=== PATIENT | male | born 1960 | race Two or more races ===

== ENCOUNTER 2023-06-27 15:38 | Emergency (ER) | payer MEDICAID ==
[~2023-06-27] VITALS: Ht 170.2 cm; Wt 97.1 kg
[2023-06-27 18:24] LABS: Basophils # (auto) 0 10 ^3/uL (0-0.2); Basophils % (auto) 0.5 % (0.0-2.0); Eosinophils # (auto) 0.3 10 ^3/uL (0-0.8); Eosinophils % (auto) 3.3 % (0.0-7.0); Hematocrit 44.4 % (41.0-53.0); Hemoglobin 14.6 g/dL (13.5-17.5); Lymphocytes # (auto) 2.7 10 ^3/uL (0.4-5.4); Mean Corpuscular Hemoglobin 29.2 pg (28.0-32.0); Mean Corpuscular Hgb Conc. 32.9 g/dL (32.0-36.0); Mean Corpuscular Volume 88.9 fL (80.0-100.0); Monocytes # (auto) 0.7 10 ^3/uL (0-1.3); Monocytes % (auto) 7.9 % (0.0-12.0); Neutrophils # (auto) 5.7 10 ^3/uL (1.6-8.6); Neutrophils % (auto) 60.3 % (37.0-80.0); Nucleated Red Blood Cells % 0.1 %; Red Cell Distribution Width 14.3 % (11.8-14.3); White Blood Cell 9.5 10^3/uL (4.4-10.8)
[2023-06-27 18:30] LABS: Urine Bacteria NONE SEEN /hpf (None Seen); Urine Blood Negative /uL (Negative); Urine Clarity Clear (Clear); Urine Color Yellow (Yellow); Urine Protein, UAD Negative (Negative); Urine Specific Gravity 1.037 (1.001-1.035); Urine Urobilinogen Normal (Negative); Urine WBC 1 /hpf (0 - 3); Urine pH 5.5 (5.0-8.0)
[2023-06-27 18:31] LABS: Anion Gap 3 (5-15); Carbon Dioxide 28 mmol/L (20-30); Chloride 107 mmol/L (98-107); Potassium 4.2 mmol/L (3.5-5.1); Sodium 138 mmol/L (136-145)
[2023-06-27 18:32] LABS: Calcium 9.4 mg/dL (8.5-10.1)
[2023-06-27 18:37] LABS: BUN/Creatinine Ratio 14.3 (10.0-20.0); Blood Urea Nitrogen 10 mg/dL (9-23); Glucose 111 mg/dL (74-106)
[2023-06-27 20:08] LABS: Lactic Acid w/Reflex 2.3 mmol/L (0.4-2.0)
[2023-06-27 20:27] LABS: Erythrocyte Sedimentation Rate 23 mm/hr (0-20)
[2023-06-27] MEDS: SODIUM CHLORIDE 0.9% 1,000 ML IV ONE (21:09)
[2023-06-27] MEDS ORDERED: CEPH500C PO (21:30)
[2023-06-27 22:08] VITALS: BP 116/63; TEMP 97.7
[2023-06-27 23:01] VITALS: PULSE 86; RESP 14; O2SAT 97
== END 2023-06-27 23:02 | disposition home or self-care (01) ==
LOC: ER 15:38
DX: I87.333 Chronic venous hypertension (idiopathic) with ulcer and inflammation of bilateral lower extremity (principal); Z79.899 Other long term (current) drug therapy
CPT/HCPCS: 36415; 80048; 81001; 82962; 83605; 84484; 85025; 85652; 86141; 87040; 96360; 99283; J7030

== ENCOUNTER 2024-10-12 10:26 | Inpatient (IN) | payer MEDICARE, MEDICAID ==
[~2024-10-12] VITALS: Ht 170.2 cm; Wt 104.3 kg
[~2024-10-12 10:26] MED LIST: CEPH500C PO
[2024-10-12] MEDS: SODIUM CHLORIDE 0.9% 1,000 ML IV ONE ×2 (10:30→10:47)
--- NOTE | 2024-10-12 10:32 | ED.PDOC ---
History of Present Illness HPI Comments 64 year old male presents to the ED via EMS with a chief complaint of wound check onset today (10/12/24). Per EMS, patient's neighbor noticed patient's wounds are worsening, called 911. Patient states he has been having wounds on bilateral lower extremities "for a while", current caregiver, brother, is in [facility] and has not been able to take care of patient. Patient is unsure if he is currently of antibiotics. PMHx [place], CAD, DM, CVA, dementia. Denies chest pain, nausea, vomiting, abdominal pain, fevers, chills. No other symptoms or modifying factors present at this time. Time Seen by MD: 10:25 Primary Care Provider: SRAVANTHI Juan Notes: Medications, Allergies Allergies: Coded Allergies: NO KNOWN ALLERGIES (Unverified , 06/27/23) Home Meds Active Scripts Cephalexin Monohydrate (Cephalexin) 500 Mg Cap, 500 MG PO Q6HR for 7 Days, #28 CAP Prov:TARAS CURRAN Margarette CURRY 06/27/23 Information Source: Patient, Emergency Med Personnel Mode of Arrival: EMS Severity: Moderate Timing: Hours Duration: Since onset Prehospital treatment: None Past Medical History PAST MEDICAL HISTORY: CAD, CVA, Dementia, DM, [place] Surgical History: Denies all surgeries Family History Family History: Reviewed,noncontributory to illness, No family hx of Cancer, No family hx of DM, No family hx of Heart harinder, No family hx of HTN, No family hx ofKidney harinder, No family hx of Liver harinder, No family hx of Lung harinder, No family hx of Stroke Social History Smoker: Non-Smoker Alcohol: Denies ETOH Use Drugs: Denies Drug Use Lives In: Home Constitutional: denies: chills, diaphoresis, fatigue, fever, malaise, sweats, weakness, others EENTM: denies: blurred vision, double vision, ear bleeding, ear discharge, ear drainage, ear pain, ear ringing, eye pain, eye redness, hearing loss, mouth pain, mouth swelling, nasal discharge, nose bleeding, nose congestion, nose pain, photophobia, tearing, throat pain, throat swelling, voice changes, others Respiratory: denies: cough, hemoptysis, orthopnea, SOB at rest, shortness of breath, SOB with excertion, stridor, wheezing, others Cardiovascular: denies: chest pain, dizzy spells, diaphoresis, Dyspnea on exertion, edema, irregular heart beat, left arm pain, lightheadedness, palpitations, PND, syncope, others Gastrointestinal: denies: abdomen distended, abdominal pain, blood streaked bowels, constipated, diarrhea, dysphagia, difficulty swallowing, hematemesis, melena, nausea, poor appetite, poor fluid intake, rectal bleeding, rectal pain, vomiting, others Genitourinary: denies: burning, dysuria, flank pain, frequency, hematuria, incontinence, penile discharge, penile sore, pain, testicle pain, testicle swelling, urgency, others Neurological: denies: dizziness, fainting, headache, left sided numbness, left sided weakness, numbness, paresthesia, pre-existing deficit, right sided numbness, right sided weakness, seizure, speech problems, tingling, tremors, weakness, others Musculoskeletal: denies: back pain, gout, joint pain, joint swelling, muscle pain, muscle stiffness, neck pain, others Integumetry: reports: wounds (bilateral lower extremites); denies: bruises, change in color, change in hair/nails, dryness, laceration, lesions, lumps, rash, others Allergic/Immunocompromised: denies: Difficulty Healing, Frequent Infections, Hives, Itching, others Hematologic/Lymphatic: denies: anemia, blood clots, easy bleeding, easy bruising, swollen glands, others Endocrine: denies: excessive hunger, excessive sweating, excessive thirst, excessive urination, flushing, intolerance to cold, intolerance to heat, unexplained weight gain, unexplained weight loss, others Psychiatric: denies: anxiety, bipolar disorder, depression, hopeless, panic disorder, schizophrenia, sleepless, suicidal, others All Other Systems: Reviewed and Negative Physical Exam General Appearance: Moderate Distress, Normal HEENT: Normal ENT Inspection, Pharynx Normal, TMs Normal Neck: Full Range of Motion, Non-Tender, Normal, Normal Inspection Respiratory: Chest Non-Tender, Lungs Clear, No Accessory Muscle Use, No Respiratory Distress, Normal Breath Sounds Cardiovascular: No Edema, No JVD, No Murmur, No Gallop, Normal Peripheral Pulses, Regular Rate/Rhythm Breast Exam: Deferred Gastrointestinal: No Organomegaly, Non Tender, No Pulsatile Mass, Normal Bowel Sounds, Soft Genitalia: Deferred Pelvic: Deferred Rectal: Deferred Extremities: No calf tenderness, Normal capillary refill, Normal inspection, Normal range of motion, Non-tender, No pedal edema Musculoskeletal : Apperance: Normal Neurologic: Alert, health program analyst II-XII nml as Tested, No Motor Deficits, Normal Affect, Normal Mood, No Sensory Deficits Cerebellar Function: NOT DONE Reflexes: NOT DONE Skin: Dry, Normal Color, Warm, Wounds (Bilateral lower extremity) Lymphatic: No Adenopathy Was a procedure done? Was a procedure done?: No Differential Dx Considerations may include: Cellulitis Sepsis X-Ray, Labs, Meds, VS Vital Signs Date Time Temp Pulse Resp B/P (MAP) Pulse Ox O2 Delivery O2 Flow Rate FiO2 10/12/24 10:34 97.7 66 20 115/67 (83) 94 97.7 10/12/24 10:33 62 Lab Test 10/12/24 10:46 Range/Units White Blood Count 4.5 4.4-10.8 10^3/uL Red Blood Count 4.02 L 4.5-5.90 10^6/uL Hemoglobin 11.5 L 13.5-17.5 g/dL Hematocrit 34.7 L 41.0-53.0 % Mean Corpuscular Volume 86.3 80.0-100.0 fL Mean Corpuscular Hemoglobin 28.5 28.0-32.0 pg Mean Corpuscular Hemoglobin Concent 33.1 32.0-36.0 g/dL Red Cell Distribution Width 16.6 H 11.8-14.3 % Platelet Count 212 140-450 10^3/uL Mean Platelet Volume 8.9 6.9-10.8 fL Neutrophils (%) (Auto) 61.9 37.0-80.0 % Lymphocytes (%) (Auto) 24.0 10.0-50.0 % Monocytes (%) (Auto) 10.6 0.0-12.0 % Eosinophils (%) (Auto) 2.9 0.0-7.0 % Basophils (%) (Auto) 0.6 0.0-2.0 % Neutrophils # (Auto) 2.8 1.6-8.6 10 ^3/uL Lymphocytes # (Auto) 1.1 0.4-5.4 10 ^3/uL Monocytes # (Auto) 0.5 0-1.3 10 ^3/uL Eosinophils # (Auto) 0.1 0-0.8 10 ^3/uL Basophils # (Auto) 0 0-0.2 10 ^3/uL Nucleated Red Blood Cells 0.0 % Sodium Level 144 136-145 mmol/L Potassium Level 3.4 L 3.5-5.1 mmol/L Chloride Level 114 H 98-107 mmol/L Carbon Dioxide Level 21 20-31 mmol/L Anion Gap 9 5-15 Blood Urea Nitrogen 10 9-23 mg/dL Creatinine 0.64 L 0.700-1.30 mg/dL Glomerular Filtration Rate Calc 105 >90 mL/min BUN/Creatinine Ratio 15.6 10.0-20.0 Serum Glucose 105 74-106 mg/dL Lactic Acid Level 1.3 0.4-2.0 mmol/L Calcium Level 7.8 L 8.7-10.4 mg/dL Troponin I High Sensitivity 4 </=54 ng/L Current Medications Medications (Trade) Dose Ordered Sig/Zabrina Route Start Time Stop Time Status Last Admin Clindamycin Phosphate 50 ml @ 50 mls/hr ONCE ONCE IV 10/12/24 10:30 10/12/24 11:29 10/12/24 10:51 Sodium Chloride 1,000 ml @ 1,000 mls/hr Q1H ONCE IV 10/12/24 10:30 10/12/24 11:29 10/12/24 10:47 Patient alert. Came in because of wound in his legs. On examination he does have infection possible cellulitis possible sepsis. Vitals stable. Establish intravenous access. Was given fluids. Was given Zosyn. Was given clindamycin. WBC within normal limits. Explained to the patient that he will be admitted for antibiotics pain EKG reviewed does not show any acute changes other than bundle branch block. Spoke with the cardiology. Possibly will need echocardiogram. Continue monitoring. [address] [address] Ph: [phone] DIAGNOSTIC IMAGING Diagnostic Imaging Report : [id number] Signed PATIENT: BIN HEART JRACCT: [id number] UNIT: [id number] : 1960 LOC: ER ROOM / BED: / AGE / SEX: 64 / M ADM STATUS: REG ER SERVICE 1029 ORDERING PHYSICIAN: KENAN GARCIA MD PROCEDURE(s): CXRP - CHEST PORTABLE REASON: sob ORDER NUMBER(s): [id number], ACCESSION NUMBER(s): [id number] CHEST RADIOGRAPH Indication: sob Technique: Single frontal view of the chest was obtained COMPARISON: None FINDINGS: Lines and Tubes: Left chest wall AICD. Lungs: Increased interstitial prominence Pleura: No effusion. No pneumothorax. Cardiomediastinal contours: Unremarkable Bones: Unremarkable IMPRESSION: Mild pulmonary vascular congestion ATED BY: DAIVD FERGUSON MD DICTATED DATE/TIME: 10/12/241057 SIGNED BY: DAVID FERGUSON MD SIGNED DATE/TIME: 10/12/241057 CC: Time of 1ST Reevaluation: 10:55 Reevaluation 1ST: Unchanged Patient Education/Counseling: Diagnosis, Treatment, Prognosis Family Education/Counseling: No Family Present SEPSIS Sepsis Screen Physician Orders Blood Culture (10/12/24 10:29) Piperacillin-Tazob 3.375gm (Zosyn 3.375g (10/12/24 10:30) Clindamycin 600mg Iv (Cleocin Iv) (10/12/24 10:30) Chest Portable (10/12/24 10:29) Urinalysis (10/12/24 10:29) Sodium Chloride 0.9% (10/12/24 10:30) Sodium Chloride 0.9% (10/12/24 10:30) Troponin-I Hs (10/12/24 11:29) Troponin-I Hs (10/12/24 13:29) Electrocardigram (10/12/24 13:37) Vital Signs Date Time Temp Pulse Resp B/P (MAP) Pulse Ox O2 Delivery O2 Flow Rate FiO2 10/12/24 10:34 97.7 66 20 115/67 (83) 94 97.7 10/12/24 10:33 62 Laboratory Tests Test 10/12/24 10:46 Lactic Acid Level 1.3 mmol/L (0.4-2.0) White Blood Count 4.5 10^3/uL (4.4-10.8) Medications Medications Dose Ordered Sig/Zabrina Route Start Time Stop Time Status Last Admin Dose Admin Clindamycin Phosphate 50 ml @ 50 mls/hr ONCE ONCE IV 10/12/24 10:30 10/12/24 11:29 10/12/24 10:51 Sodium Chloride 1,000 ml @ 1,000 mls/hr Q1H ONCE IV 10/12/24 10:30 10/12/24 11:29 10/12/24 10:47 Departure 1 Departure Time of Disposition: 11:14 Impression: Primary Impression: Cellulitis Qualified Codes: L03.116 - Cellulitis of left lower limb Additional Impressions: Venous stasis dermatitis of both lower extremities Right bundle branch block Disposition: ADMITTED INPATIENT Admit to: Med Surg Condition: Guarded Critical Care Note Critical Care Time?: Yes (45 min-critical care time only) Critical care comment: Monitor the heart Stability Stability form required: No Heart Score Heart Score: Heart Score Response (Comments) Value History Slightly Suspicious 0 EKG Normal 0 Age >65 2 Risk Factors >3 or Hx ASHD 2 Troponin Normal limit 0 Total 4 I personally scribed for KENAN GARCIA MD ([email or web address]) on 10/12/24 at 10:32. Electronically submitted by Yoli Moe ([email or web address]). I personally scribed for KENAN GARCIA MD ([email or web address]) on 10/12/24 at 11:24. Electronically submitted by Yoli Moe ([email or web address]). KENAN GARCIA MD Oct 12, 2024 10:32
--- NOTE | 2024-10-12 10:38 | ECG ---
[facility] Test Date: 2024-10-12 Test Time: 10:33:00 Pat Name: BIN HEART Department: ED Room: 0292 Gender: M Accounts Receivable Representative: LC : 1960 Requested By: KENAN GARCIA Order Number: [id number] Reading MD: Rell Perdomo Measurements Intervals [place] Rate: 62 P: 0 MN: 0 QRS: 39 QRSD: 202 T: 44 QT: 518 QTc: 526 Interpretive Statements Junctional rhythm IVCD, consider atypical RBBB Electronically Signed On 10-13-2024 22:52:45 PDT by Rell Perdomo Please click the below link to view image of tracing.
[2024-10-12] MEDS: CLINDAMYCIN 600MG IV 50 ML IV ONE (10:51)
--- NOTE | 2024-10-12 10:51 | ECG ---
[facility] Test Date: 2024-10-12 Test Time: 10:32:19 Pat Name: BIN HEART Department: ED Room: 0292 Gender: M Twisting Operator: LC : 1960 Requested By: KENAN GARCIA Order Number: [id number] Reading MD: Rell Perdomo Measurements Intervals [place] Rate: 66 P: 0 NV: 60 QRS: 110 QRSD: 206 T: 56 QT: 545 QTc: 572 Interpretive Statements Sinus rhythm Short NV interval Right bundle branch block Electronically Signed On 10-13-2024 22:52:39 PDT by Rell Perdomo Please click the below link to view image of tracing.
--- NOTE | 2024-10-12 11:00 | DVH ---
CHEST RADIOGRAPH Indication: sob Technique: Single frontal view of the chest was obtained COMPARISON: None FINDINGS: Lines and Tubes: Left chest wall AICD. Lungs: Increased interstitial prominence Pleura: No effusion. No pneumothorax. Cardiomediastinal contours: Unremarkable Bones: Unremarkable IMPRESSION: Mild pulmonary vascular congestion
[2024-10-12 11:03] LABS: Basophils # (auto) 0 10 ^3/uL (0-0.2); Basophils % (auto) 0.6 % (0.0-2.0); Eosinophils # (auto) 0.1 10 ^3/uL (0-0.8); Eosinophils % (auto) 2.9 % (0.0-7.0); Hematocrit 34.7 % (41.0-53.0); Hemoglobin 11.5 g/dL (13.5-17.5); Lymphocytes # (auto) 1.1 10 ^3/uL (0.4-5.4); Mean Corpuscular Hemoglobin 28.5 pg (28.0-32.0); Mean Corpuscular Hgb Conc. 33.1 g/dL (32.0-36.0); Mean Corpuscular Volume 86.3 fL (80.0-100.0); Monocytes # (auto) 0.5 10 ^3/uL (0-1.3); Monocytes % (auto) 10.6 % (0.0-12.0); Neutrophils # (auto) 2.8 10 ^3/uL (1.6-8.6); Neutrophils % (auto) 61.9 % (37.0-80.0); Platelet Count (auto) 212 10^3/uL (140-450); Red Blood Cells 4.02 10^6/uL (4.5-5.90); Red Cell Distribution Width 16.6 % (11.8-14.3); White Blood Cell 4.5 10^3/uL (4.4-10.8)
[2024-10-12 11:11] LABS: Anion Gap 9 (5-15); Carbon Dioxide 21 mmol/L (20-31); Sodium 144 mmol/L (136-145)
[2024-10-12 11:12] LABS: Calcium 7.8 mg/dL (8.7-10.4); Chloride 114 mmol/L (98-107); Potassium 3.4 mmol/L (3.5-5.1)
[2024-10-12 11:16] LABS: Glucose 105 mg/dL (74-106)
[2024-10-12 11:17] LABS: BUN/Creatinine Ratio 15.6 (10.0-20.0); Blood Urea Nitrogen 10 mg/dL (9-23)
--- NOTE | 2024-10-12 11:48 | ECG ---
[facility] Test Date: 2024-10-12 Test Time: 11:47:23 Pat Name: BIN HEART Department: ED Room: 0292 Gender: M Email Marketing Coordinator: LC : 1960 Requested By: KENAN GARCIA Order Number: [id number] Reading MD: Rell Perdomo Measurements Intervals [place] Rate: 58 P: 0 PA: 0 QRS: 88 QRSD: 206 T: 62 QT: 564 QTc: 555 Interpretive Statements Normal sinus rhythm Right bundle branch block Baseline wander in lead(s) V4,V6 Electronically Signed On 10-13-2024 22:54:41 PDT by Rell Perdomo Please click the below link to view image of tracing.
[2024-10-12] MEDS: PIPERACILLIN-TAZOB 3.375GM 100 ML IV ONE (11:49)
[2024-10-12 12:34] LABS: Urine Bacteria None Seen /hpf (None Seen)
[2024-10-12 12:57] LABS: Urine Blood Negative /uL (Negative); Urine Clarity Clear (Clear); Urine Color Yellow (Yellow); Urine Protein, UAD Negative (Negative); Urine Specific Gravity 1.032 (1.001-1.035); Urine Squamous Epithelial Cell None Seen /hpf (<5); Urine Urobilinogen Normal (Negative); Urine WBC 1 /HPF (0-3)
[2024-10-12] MEDS ORDERED: ONDANSETRON HCL 4 MG/2 ML VIAL IV PRN (15:45)
[2024-10-12] MEDS ORDERED: HYDROcodone-ACET 5/325MG TAB PO PRN (15:45)
[2024-10-12] MEDS ORDERED: ACETAMINOPHEN 325 MG TAB PO PRN (15:45)
[2024-10-12] MEDS ORDERED: DOCUSATE SOD 100 MG CAP PO PRN (15:45)
[2024-10-12] MEDS ORDERED: DONE10TA91 PO (15:58)
[2024-10-12] MEDS ORDERED: CARV3.1240 PO (15:58)
[2024-10-12] MEDS ORDERED: ATOR40TA52 PO (15:58)
[2024-10-12] MEDS ORDERED: EMPA1TAB PO (15:58)
[2024-10-12] MEDS ORDERED: ASPI-325 PO (15:58)
[2024-10-12] MEDS ORDERED: RIV20T PO (15:58)
[2024-10-12] MEDS ORDERED: AMIO200T13 PO (15:58)
[2024-10-12] MEDS ORDERED: METF-371 PO (15:58)
[2024-10-12] MEDS ORDERED: SACU1TAB PO (15:58)
--- NOTE | 2024-10-12 16:12 | DVHHP2 ---
History of Present Illness Reason for Visit: Wound Check History of Present Illness Augustine Tilley JR is a 64-year-old male with past medical history of dementia, hyperlipidemia, diabetes, hypertension, and atrial fibrillation who came to the hospital due to bilateral open lesions to his lower extremities. Patient states his normal caregiver is his brother, however his brother has been recently incarcerated and he is now alone. His neighbors have been checking on him and found he had these wounds and sent him to the hospital. Cardiovascular: AFIB, CAD, HTN, hyperipidemia Endocrine: Diabetes Smoke: No ALCOHOL: none Drugs: None Lives: Alone Domestic Violence: Neg Review of Systems Constitutional: No: Fever, Chills, Sweats, Weakness, Malaise, Other Eyes: No: Pain, Vision change, Conjunctivae inflammation, Eyelid inflammation, Other, Redness ENT: No: Ear pain, Ear discharge, Nose pain, Nose discharge, Nose congestion, Mouth pain, Mouth swelling, Throat pain, Throat swelling, Other Respiratory: No: Cough, Dry, Shortness of breath, SOB with excertion, Wheezing, Hemoptysis, Pleuritic Pain, Sputum, Wheezing, Other Cardiovascular: No: Chest Pain, Palpitations, Orthopnea, Paroxysmal Noc. Dyspnea, Edema, Lt Headedness, Other Gastrointestinal: No: Nausea, Vomiting, Abdominal Pain, Diarrhea, Constipation, Melena, Hematochezia, Other Genitourinary: No Dysuria, No Frequency, No Incontinence, No Hematuria, No Retention, No Other Musculoskeletal: leg pain (edema and redness); No: other, neck pain, shoulder pain, arm pain, back pain, hand pain, foot pain Skin: Lesions (bilateral lower extremities); No: Rash, Jaundice, Bruising, Other Neurological: No: Weakness, Numbness, Incoordination, Change in speech, Confusion, Seizures, Other Allergies: Coded Allergies: NO KNOWN ALLERGIES (Unverified , 06/27/23) Medications Current Medications Medications Dose Ordered Sig/Zabrina Route Start Time Stop Time Status Last Admin Dose Admin Acetaminophen/ Hydrocodone Bitart 1 tab Q4HP PRN PO 10/12/24 15:45 UNV Ondansetron HCl 4 mg Q4HP PRN IV 10/12/24 15:45 UNV Docusate Sodium 100 mg BIDPRN PRN PO 10/12/24 15:45 UNV Acetaminophen 650 mg Q6HP PRN PO 10/12/24 15:45 UNV Exam Vital Signs Vital Signs Date Time Temp Pulse Resp B/P (MAP) Pulse Ox O2 Delivery O2 Flow Rate FiO2 10/12/24 14:00 57 24 119/71 (87) 97 10/12/24 11:00 Nasal Cannula* 2 28 10/12/24 11:00 97.7 97.7 General Appearance: Alert, Oriented X3, Cooperative, mild distress HEENT: Atraumatic, PERRLA, EOMI, Mucous membr. moist/pink Respiratory: Clear to auscultation, Normal air movement Cardiovascular: Regular rate, Normal S1, Normal S2, Other (SR-SB) Abdominal: Normal bowel sounds, Soft, No tenderness, No hepatospenomegaly Extremities: No clubbing, No cyanosis, Other (bilateral lower extremity swelling, pain, and redness) Skin: No significant lesion (Open lesion to right beltran) Neuro: Normal speech, Normal tone Psych/Mental Status: Mental status NL, Mood NL Labs/Xrays Labs Test 10/12/24 13:10 10/12/24 12:34 10/12/24 10:46 Range/Units Troponin I High Sensitivity 6 </=54 ng/L Urine Color Yellow Yellow Urine Clarity Clear Clear Urine pH 5.0 5.0-9.0 Urine Specific [place] 1.032 1.001-1.035 Urine Protein Negative Negative Urine Ketones Negative Negative Urine Blood Negative Negative /uL Urine Nitrite Negative Negative Urine Bilirubin Negative Negative Urine Urobilinogen Normal Negative mg/dL Urine Leukocyte Esterase Negative Negative /uL Urine RBC 1 0 - 3 /hpf Urine Microscopic WBC 1 0-3 /HPF Urine Squamous Epithelial Cells None seen <5 /hpf Urine Bacteria None seen None Seen /hpf Urine Glucose 4+ H Normal mg/dL White Blood Count 4.5 4.4-10.8 10^3/uL Red Blood Count 4.02 L 4.5-5.90 10^6/uL Hemoglobin 11.5 L 13.5-17.5 g/dL Hematocrit 34.7 L 41.0-53.0 % Mean Corpuscular Volume 86.3 80.0-100.0 fL Mean Corpuscular Hemoglobin 28.5 28.0-32.0 pg Mean Corpuscular Hemoglobin Concent 33.1 32.0-36.0 g/dL Red Cell Distribution Width 16.6 H 11.8-14.3 % Platelet Count 212 140-450 10^3/uL Mean Platelet Volume 8.9 6.9-10.8 fL Neutrophils (%) (Auto) 61.9 37.0-80.0 % Lymphocytes (%) (Auto) 24.0 10.0-50.0 % Monocytes (%) (Auto) 10.6 0.0-12.0 % Eosinophils (%) (Auto) 2.9 0.0-7.0 % Basophils (%) (Auto) 0.6 0.0-2.0 % Neutrophils # (Auto) 2.8 1.6-8.6 10 ^3/uL Lymphocytes # (Auto) 1.1 0.4-5.4 10 ^3/uL Monocytes # (Auto) 0.5 0-1.3 10 ^3/uL Eosinophils # (Auto) 0.1 0-0.8 10 ^3/uL Basophils # (Auto) 0 0-0.2 10 ^3/uL Nucleated Red Blood Cells 0.0 % Sodium Level 144 136-145 mmol/L Potassium Level 3.4 L 3.5-5.1 mmol/L Chloride Level 114 H 98-107 mmol/L Carbon Dioxide Level 21 20-31 mmol/L Anion Gap 9 5-15 Blood Urea Nitrogen 10 9-23 mg/dL Creatinine 0.64 L 0.700-1.30 mg/dL Glomerular Filtration Rate Calc 105 >90 mL/min BUN/Creatinine Ratio 15.6 10.0-20.0 Serum Glucose 105 74-106 mg/dL Lactic Acid Level 1.3 0.4-2.0 mmol/L Calcium Level 7.8 L 8.7-10.4 mg/dL CHEST RADIOGRAPH FINDINGS: Lines and Tubes: Left chest wall AICD. Lungs: Increased interstitial prominence Pleura: No effusion. No pneumothorax. Cardiomediastinal contours: Unremarkable Bones: Unremarkable IMPRESSION: Mild pulmonary vascular congestion Assessment/Plan Assessment/Plan Assessment: Venous stasis dermatitis of both lower extremities, Cellulitis, Hypertension, Atrial fibrillation, Hyperlipemia, Dementia, Diabetes, Plan: Admit to Med-Surg, Wound care consult, Social service consult, IV antibiotics, Wound culture, IV hydration, Manage/Monitor electrolytes closely, Home medications reconciled, Plan discussed with: Patient My Orders Orders - OBED THOMASON Procedure Category Date Status Time * Wound Consult CONS 10/12/24 Transmitted Wound Culture W/ Gs BROOKE 10/12/24 Logged 15:45 Admit ADMIT 10/12/24 Transmitted 15:45 Code Status CODE 10/12/24 Transmitted 15:45 2 Gm Sodium Diet DIET 10/12/24 Transmitted Dinner Hydrocodone-Acet PHA 10/12/24 Logged 5/325mg Tab ([place] 15:45 Ondansetron Hcl PHA 10/12/24 Logged (Zofran) 15:45 Docusate Sodium PHA 10/12/24 Logged Capsule (Colace 15:45 Complete Blood Count LAB 10/13/24 Verified 04:00 Comprehensive LAB 10/13/24 Verified Metabolic Panel 04:00 Condition: Serious REZA 10/12/24 In Process 15:45 Acetaminophen Tablet PHA 10/12/24 Logged (Tylenol Tablet) 15:45 * Station Tender CONS 10/12/24 Transmitted Consult Amiodarone Tablet PHA 10/12/24 Verified (Cordarone Tablet) 22:00 Aspirin Enteric PHA 10/13/24 Verified Coated Tablet 10:00 Carvedilol Tablet PHA 10/12/24 Verified (Coreg Tablet) 22:00 Empagliflozin PHA 10/13/24 Verified (Jardiance) 10:00 Rivaroxaban Tablet PHA 10/13/24 Verified (Xarelto Tablet) 10:00 Sacubitril-Valsartan PHA 10/12/24 Verified (Entresto 24-26 Mg 22:00 (Nf) Atorvastatin PHA 10/13/24 Verified Calcium 10:00 (Nf) Donepezil PHA 10/13/24 Verified Hydrochloride 10:00 Date of Service: Oct 12, 2024 Billing Provider: OBED THOMASON Common Visit Codes: [id number] INP/OBS CARE (MOD) OBED THOMASON Oct 12, 2024 16:12
[2024-10-12] MEDS ORDERED: DEXTROSE (50%) 50ML SYRG IV PRN (16:15)
[2024-10-12] MEDS: POTASSIUM EFFERVESENT TAB 25 MEQ PO ONE (16:41)
[2024-10-12] MEDS: ACCU-CHEK COMFORT CURVE STRIP VI SCH (16:47)
[2024-10-12] MEDS: InsuLIN REG 1unit/0.01ml Soln (100units/ml) SC SCH (16:47)
[2024-10-12] MEDS: RIVAROXABAN 20 MG TAB PO SCH (18:07)
[2024-10-12 20:00] VITALS: PULSE 60; RESP 20; O2SAT 98
--- NOTE | 2024-10-12 21:39 | DVHINCON2 ---
Date of service: Oct 12, 2024 Referring Physician Yuri Reason for Consultation Atrial fibrillation. History of Present Illness This is a 64-year-old male with past medical history of dementia, hyperlipidemia, diabetes, hypertension, and atrial fibrillation who presented to the ED with c/o bilateral open lesions to his lower extremities. Patient states his normal caregiver is his brother, however his brother has been recently incarcerated and he is now alone. His neighbors have been checking on him and found he had these wounds and sent him to the hospital.Chest x-ray shows mild pulmonary vascular congestion. CBC unremarkable. K 3.4. Troponin negative x3. UA shows 4+ gluc. EKG shows junctional rhythm at 62. Second EKG shows NSR with RBBB at 66. Patient was admitted to the hospital. I am asked to consult on this patient. Allergies: Coded Allergies: NO KNOWN ALLERGIES (Unverified , 06/27/23) Home Meds Reported Medications Donepezil Hydrochloride (Donepezil Hydrochloride) 10 Mg Tab, 1 TAB PO DAILY 10/12/24 Atorvastatin Calcium (ATORVASTATIN CALCIUM) 40 Mg Tab, 1 TAB PO DAILY 10/12/24 Rivaroxaban (Xarelto Tablet) 20 Mg Tb, 1 TAB PO DAILY 10/12/24 Carvedilol (Carvedilol) 3.125 Mg Tab, 1 TAB PO BID 10/12/24 Amiodarone HCl (Amiodarone HCl) 200 Mg Tab, 1 TAB PO BID 10/12/24 Metformin Hydrochloride (Metformin Hcl) 850 Mg Tab, TAB PO DAILY 10/12/24 Aspirin (Aspirin Low Dose) 81 Mg Tab, 1 TAB PO DAILY 10/12/24 Empagliflozin (Jardiance) 10 Mg Tab, 1 TAB PO DAILY 10/12/24 Sacubitril-Valsartan (Entresto 24-26 mg) 1 Tab Tab, 1 TAB PO BID 10/12/24 Discontinued Scripts Cephalexin Monohydrate (Cephalexin) 500 Mg Cap, 500 MG PO Q6HR for 7 Days, #28 CAP Prov:TARAS CURRAN DO 06/27/23 Current Medications Current Medications Medications (Trade) Dose Ordered Sig/Zabrina Route PRN Reason Start Time Stop Time Status Last Admin Acetaminophen/ Hydrocodone Bitart ([place] 5/325MG Tab) 1 tab Q4HP PRN PO MODERATE PAIN (4-6 PAIN SCALE) 10/12/24 15:45 Ondansetron HCl (Zofran) 4 mg Q4HP PRN IV NAUSEA / VOMITING 10/12/24 15:45 Docusate Sodium (Colace Capsule) 100 mg BIDPRN PRN PO FOR CONSTIPATION 10/12/24 15:45 Acetaminophen (Tylenol Tablet) 650 mg Q6HP PRN PO PAIN SCALE 1-3 OR TEMP>100.4 10/12/24 15:45 Amiodarone HCl (Cordarone Tablet) 200 mg BID PO 10/12/24 22:00 Aspirin (Ecotrin Enteric Coated Tablet) 81 mg DAILY PO 10/13/24 10:00 Carvedilol (Coreg Tablet) 3.125 mg BID PO 10/12/24 22:00 Empaglifozin (Jardiance) 10 mg DAILY PO 10/13/24 10:00 Rivaroxaban (Xarelto Tablet) 20 mg DAILY PO 10/13/24 10:00 10/12/24 16:39 DC Sacubitril/ Valsartan (Entresto 24-26 Mg tab) 1 tab BID PO 10/12/24 22:00 Patient Own Medication 1 tab DAILY PO 10/13/24 10:00 UNV Patient Own Medication 1 tab DAILY PO 10/13/24 10:00 Clindamycin Phosphate 50 ml @ 50 mls/hr Q8HR IV 10/12/24 22:00 Piperacillin Sod/ Tazobactam Sod 100 ml @ 25 mls/hr Q8HR IV 10/12/24 22:00 Diagnostic Test (Pha) (Accu-Chek Comfort Curve T) 1 strip ACHS 10/12/24 17:00 10/12/24 16:47 Insulin Human Regular (InsuLIN R) HS SC 10/12/24 22:00 Insulin Human Regular (InsuLIN R) AC SC 10/12/24 17:00 Dextrose 50 ml UD PRN IV Blood Sugar LESS THAN 60 10/12/24 16:15 Rivaroxaban (Xarelto Tablet) 20 mg QPM PO 10/12/24 18:00 10/12/24 18:07 Atorvastatin Calcium (Lipitor) 40 mg HS PO 10/12/24 22:00 Review of Systems Constitutional: No: Fever, Chills, Sweats, Weakness, Malaise, Other Eyes: No: Pain, Vision change, Conjunctivae inflammation, Eyelid inflammation, Other, Redness ENT: No: Ear pain, Ear discharge, Nose pain, Nose discharge, Nose congestion, Mouth pain, Mouth swelling, Throat pain, Throat swelling, Other Respiratory: No: Cough, Dry, Shortness of breath, SOB with excertion, Wheezing, Hemoptysis, Pleuritic Pain, Sputum, Wheezing, Other Cardiovascular: No: Chest Pain, Palpitations, Orthopnea, Paroxysmal Noc. Dyspnea, Edema, Lt Headedness, Other Gastrointestinal: No: Nausea, Vomiting, Abdominal Pain, Diarrhea, Constipation, Melena, Hematochezia, Other Genitourinary: No Dysuria, No Frequency, No Incontinence, No Hematuria, No Retention, No Other Musculoskeletal: leg pain (edema and redness); No: other, neck pain, shoulder pain, arm pain, back pain, hand pain, foot pain Skin: Lesions (bilateral lower extremities); No: Rash, Jaundice, Bruising, Other Neurological: No: Weakness, Numbness, Incoordination, Change in speech, Confu mirza, Seizures, Other Vital Signs Vital Signs Date Time Temp Pulse Resp B/P (MAP) Pulse Ox O2 Delivery O2 Flow Rate FiO2 10/12/24 20:00 60 10/12/24 20:00 20 98 Nasal Cannula* 2 28 10/12/24 20:00 108/61 (77) 10/12/24 19:30 97.7 97.7 Physical Exam GENERAL: Alert and oriented x 3. No acute distress. EYES: PERRL, EOMI. Anicteric. HENT: Moist mucous membranes. LUNGS: Clear to auscultation bilaterally. CARDIOVASCULAR: Regular rate and rhythm. ABDOMEN: Soft, non-tender and non-distended. EXTREMITIES: Bilateral lower extremity swelling, pain, and open lesion to right beltran. NEUROLOGIC: No focal neurological deficits. SKIN: Warm, dry. Labs/Diagnostic Data Labs Test 10/12/24 16:44 10/12/24 16:13 10/12/24 12:34 10/12/24 10:46 Range/Units POC Glucose 93 70-106 mg/dl Troponin I High Sensitivity 4 </=54 ng/L Urine Color Yellow Yellow Urine Clarity Clear Clear Urine pH 5.0 5.0-9.0 Urine Specific [place] 1.032 1.001-1.035 Urine Protein Negative Negative Urine Ketones Negative Negative Urine Blood Negative Negative /uL Urine Nitrite Negative Negative Urine Bilirubin Negative Negative Urine Urobilinogen Normal Negative mg/dL Urine Leukocyte Esterase Negative Negative /uL Urine RBC 1 0 - 3 /hpf Urine Microscopic WBC 1 0-3 /HPF Urine Squamous Epithelial Cells None seen <5 /hpf Urine Bacteria None seen None Seen /hpf Urine Glucose 4+ H Normal mg/dL White Blood Count 4.5 4.4-10.8 10^3/uL Red Blood Count 4.02 L 4.5-5.90 10^6/uL Hemoglobin 11.5 L 13.5-17.5 g/dL Hematocrit 34.7 L 41.0-53.0 % Mean Corpuscular Volume 86.3 80.0-100.0 fL Mean Corpuscular Hemoglobin 28.5 28.0-32.0 pg Mean Corpuscular Hemoglobin Concent 33.1 32.0-36.0 g/dL Red Cell Distribution Width 16.6 H 11.8-14.3 % Platelet Count 212 140-450 10^3/uL Mean Platelet Volume 8.9 6.9-10.8 fL Neutrophils (%) (Auto) 61.9 37.0-80.0 % Lymphocytes (%) (Auto) 24.0 10.0-50.0 % Monocytes (%) (Auto) 10.6 0.0-12.0 % Eosinophils (%) (Auto) 2.9 0.0-7.0 % Basophils (%) (Auto) 0.6 0.0-2.0 % Neutrophils # (Auto) 2.8 1.6-8.6 10 ^3/uL Lymphocytes # (Auto) 1.1 0.4-5.4 10 ^3/uL Monocytes # (Auto) 0.5 0-1.3 10 ^3/uL Eosinophils # (Auto) 0.1 0-0.8 10 ^3/uL Basophils # (Auto) 0 0-0.2 10 ^3/uL Nucleated Red Blood Cells 0.0 % Sodium Level 144 136-145 mmol/L Potassium Level 3.4 L 3.5-5.1 mmol/L Chloride Level 114 H 98-107 mmol/L Carbon Dioxide Level 21 20-31 mmol/L Anion Gap 9 5-15 Blood Urea Nitrogen 10 9-23 mg/dL Creatinine 0.64 L 0.700-1.30 mg/dL Glomerular Filtration Rate Calc 105 >90 mL/min BUN/Creatinine Ratio 15.6 10.0-20.0 Serum Glucose 105 74-106 mg/dL Lactic Acid Level 1.3 0.4-2.0 mmol/L Calcium Level 7.8 L 8.7-10.4 mg/dL Assessment Venous stasis dermatitis of both lower extremities. Cellulitis. Hypertension. Atrial fibrillation. Hyperlipemia. Dementia. Diabetes. Plan/Recommendation I agree with your ongoing assessment and care of plan. Patient was seen at bedside in the ED this morning. Jg for pain management. Amiodarone. Aspirin, Lipitor. Coreg. IV antibiotics as ordered. Xarelto. Entresto. Additional plan as per the hospital course. A total of 45 minutes was spent reviewing the patient record, examining the patient, making a diagnostic and therapeutic plan, discussing this plan with medical personnel, following up on diagnostic studies and following the patient for clinical stability excluding any and all procedures. At least 50% of this time was spent in direct, [id number] contact. Plan discussed with: Patient YAMILET DODD MD Oct 12, 2024 21:39
[2024-10-12 23:09] VITALS: PULSE 60; RESP 18; O2SAT 96
[2024-10-12] MEDS: CLINDAMYCIN 600MG IV 50 ML IV SCH (23:36)
[2024-10-12] MEDS: AMIODARONE HCL 200 MG TAB PO SCH (23:42)
[2024-10-12] MEDS: CARVEDILOL 3.125 MG TAB PO SCH (23:42)
[2024-10-12] MEDS: SACUBITRIL-VALSARTAN 24mg/26mg TAB PO SCH (23:43)
[2024-10-12] MEDS: ATORVASTATIN 20 MG TAB PO SCH (23:43)
[2024-10-13] VITALS (8 sets, daily range): BP systolic 99–126; BP diastolic 64–85; PULSE 56–63; RESP 16–20; TEMP 97.5–98.4; O2SAT 93–100
[2024-10-13] MEDS: InsuLIN REG 1unit/0.01ml Soln (100units/ml) SC SCH (00:41)
[2024-10-13] MEDS: PIPERACILLIN-TAZOB 3.375GM 100 ML IV SCH (00:44)
[2024-10-13 07:09] LABS: Basophils # (auto) 0 10 ^3/uL (0-0.2); Basophils % (auto) 0.6 % (0.0-2.0); Eosinophils # (auto) 0.1 10 ^3/uL (0-0.8); Eosinophils % (auto) 2.9 % (0.0-7.0); Hematocrit 36.7 % (41.0-53.0); Hemoglobin 12.3 g/dL (13.5-17.5); Lymphocytes # (auto) 1.3 10 ^3/uL (0.4-5.4); Lymphocytes % (auto) 26.2 % (10.0-50.0); Mean Corpuscular Hemoglobin 28.6 pg (28.0-32.0); Mean Corpuscular Hgb Conc. 33.5 g/dL (32.0-36.0); Mean Corpuscular Volume 85.4 fL (80.0-100.0); Monocytes # (auto) 0.5 10 ^3/uL (0-1.3); Monocytes % (auto) 10.9 % (0.0-12.0); Neutrophils # (auto) 2.8 10 ^3/uL (1.6-8.6); Neutrophils % (auto) 59.4 % (37.0-80.0); Platelet Count (auto) 220 10^3/uL (140-450); Red Blood Cells 4.29 10^6/uL (4.5-5.90); Red Cell Distribution Width 16.8 % (11.8-14.3); White Blood Cell 4.8 10^3/uL (4.4-10.8)
[2024-10-13 07:26] LABS: Albumin 3.6 g/dL (3.2-4.8); Alkaline Phosphatase 114 U/L (46-116); Anion Gap 9 (5-15); BUN/Creatinine Ratio 12.2 (10.0-20.0); Blood Urea Nitrogen 10 mg/dL (9-23); Calcium 8.9 mg/dL (8.7-10.4); Carbon Dioxide 24 mmol/L (20-31); Glucose 98 mg/dL (74-106); Potassium 4.2 mmol/L (3.5-5.1); Sodium 142 mmol/L (136-145); Total Protein 6.6 g/dL (5.7-8.2)
[2024-10-13 07:27] LABS: Alanine Aminotransferase 92 U/L (7-40); Aspartate Aminotransferase 72 U/L (<34); Bilirubin, Total 1.4 mg/dL (0.2-1.0); Chloride 109 mmol/L (98-107)
[2024-10-13] MEDS: ASPirin-EC 81 mg tab PO SCH (08:52)
[2024-10-13] MEDS: EMPAGLIFLOZIN 10 MG TAB PO SCH (08:52)
[2024-10-13] MEDS ORDERED: PATIENTS OWN MEDICATION (Atorvastatin Calcium 1 TAB) PO SCH (10:00)
[2024-10-13] MEDS ORDERED: RIVAROXABAN 20 MG TAB PO SCH (10:00)
--- NOTE | 2024-10-13 13:48 | DVHPN2 ---
Reviewed: Care Plan, H&P, Labs, Medications, Previous Orders, Radiology Changes from previous H/P or p: No Changes Eyes: No Pain, No Vision change, No Conjunctivae inflammation, No Eyelid inflammation, No Other, No Redness ENT: No Ear pain, No Ear discharge, No Nose pain, No Nose discharge, No Nose congestion, No Mouth pain, No Mouth swelling, No Throat pain, No Throat swelling, No Other Cardiovascular: No Chest Pain, No Palpitations, No Orthopnea, No Paroxysmal Noc. Dyspnea, No Edema, No Lt Headedness, No Other Respiratory: No Cough, No Dry, No Shortness of breath, No SOB with excertion, No Wheezing, No Hemoptysis, No Pleuritic Pain, No Sputum, No Other Gastrointestinal: No Nausea, No Vomiting, No Abdominal Pain, No Diarrhea, No Constipation, No Melena, No Hematochezia, No Other Genitourinary: No Dysuria, No Frequency, No Incontinence, No Hematuria, No Retention, No Other Musculoskeletal: No other, No neck pain, No shoulder pain, No arm pain, No back pain, No hand pain; leg pain (edema and redness); No foot pain Skin: No Rash; Lesions (bilateral lower extremities); No Jaundice, No Bruising, No Other Objective Vitals Vital Signs Date Time Temp Pulse Resp B/P (MAP) Pulse Ox O2 Delivery O2 Flow Rate FiO2 10/13/24 13:00 98.4 57 17 122/77 (92) 98 98.4 10/13/24 08:00 Nasal Cannula* 2 28 Intake/Output Intake and Output 10/13/24 07:00 Intake Total 2370 ml Balance 2370 ml Intake Oral 120 ml IV Total 2250 ml # Voids 4 Medications Current Medications Medications Dose Ordered Sig/Zabrina Route Start Time Stop Time Status Last Admin Dose Admin Acetaminophen/ Hydrocodone Bitart 1 tab Q4HP PRN PO 10/12/24 15:45 Ondansetron HCl 4 mg Q4HP PRN IV 10/12/24 15:45 Docusate Sodium 100 mg BIDPRN PRN PO 10/12/24 15:45 Acetaminophen 650 mg Q6HP PRN PO 10/12/24 15:45 Amiodarone HCl 200 mg BID PO 10/12/24 22:00 10/13/24 08:53 200 MG Aspirin 81 mg DAILY PO 10/13/24 10:00 10/13/24 08:52 81 MG Carvedilol 3.125 mg BID PO 10/12/24 22:00 10/13/24 08:56 3.125 MG Empaglifozin 10 mg DAILY PO 10/13/24 10:00 10/13/24 08:52 10 MG Sacubitril/ Valsartan 1 tab BID PO 10/12/24 22:00 10/13/24 08:52 1 TAB Patient Own Medication 1 tab DAILY PO 10/13/24 10:00 UNV Patient Own Medication 1 tab DAILY PO 10/13/24 10:00 Clindamycin Phosphate 50 ml @ 50 mls/hr Q8HR IV 10/12/24 22:00 10/13/24 13:13 50 MLS/HR Piperacillin Sod/ Tazobactam Sod 100 ml @ 25 mls/hr Q8HR IV 10/12/24 22:00 10/13/24 06:08 25 MLS/HR Diagnostic Test (Pha) 1 strip ACHS 10/12/24 17:00 10/13/24 10:55 1 STRIP Insulin Human Regular HS SC 10/12/24 22:00 10/13/24 00:41 2 UNITS Insulin Human Regular AC SC 10/12/24 17:00 Dextrose 50 ml UD PRN IV 10/12/24 16:15 Rivaroxaban 20 mg QPM PO 10/12/24 18:00 10/12/24 18:07 20 MG Atorvastatin Calcium 40 mg HS PO 10/12/24 22:00 10/12/24 23:43 40 MG Laboratory Results Laboratory Tests 10/13/24 06:46 Chemistry Test 10/13/24 06:46 Albumin 3.6 g/dL (3.2-4.8) Calcium Level 8.9 mg/dL (8.7-10.4) Total Protein 6.6 g/dL (5.7-8.2) LFT Test 10/13/24 06:46 Alanine Aminotransferase (ALT) 92 U/L (7-40) H Alkaline Phosphatase 114 U/L (46-116) Aspartate Amino Transferase (AST) 72 U/L (<34) H Total Bilirubin 1.4 mg/dL (0.2-1.0) H Urinalysis Test 10/12/24 12:34 Urine Color Yellow (Yellow) Urine Clarity Clear (Clear) Urine pH 5.0 (5.0-9.0) Urine Specific [place] 1.032 (1.001-1.035) Urine Protein Negative (Negative) Urine Ketones Negative (Negative) Urine Blood Negative /uL (Negative) Urine Nitrite Negative (Negative) Urine Bilirubin Negative (Negative) Urine Urobilinogen Normal mg/dL (Negative) Urine Leukocyte Esterase Negative /uL (Negative) Urine RBC 1 /hpf (0 - 3) Urine Microscopic WBC 1 /HPF (0-3) Urine Squamous Epithelial Cells None seen /hpf (<5) Urine Bacteria None seen /hpf (None Seen) Urine Glucose 4+ mg/dL (Normal) H Microbiology Microbiology Date/Time Source Procedure Growth Status 10/12/24 10:46 Blood Blood Culture - Preliminary NO GROWTH AFTER 24 HOURS OF INCUBATION. Resulted Labs and/or images reviewed: Labs reviewed by me, Image(s) reviewed by me Assessment/Plan Assessment/Plan Venous stasis dermatitis of both lower extremities, Cellulitis, Hypertension, History of coronary artery disease Dementia Acute on chronic congestive heart failure: Coreg Entresto Atrial fibrillation, : Consult by Dr. Montejo appreciated, continue amiodarone Xarelto Hyperlipemia, Dementia, Diabetes, insulin sliding scale Moderate malnutrition Time spent 70 minutes Advanced care planning time 20 minutes Patient is full code Patient lives alone social service consult Plan discussed with: Patient Date of Service: Oct 13, 2024 Billing Provider: RAJAT KOWALSKI MD Common Visit Codes: [id number] CARE 30-74 MIN RAJAT KOWALSKI MD Oct 13, 2024 13:48
--- NOTE | 2024-10-13 23:37 | DVHPN2 ---
Progress Note - Dictate Date Seen: Oct 13, 2024 Medical Necessity Reason Pt with a Central, PICC or Fol: No Subjective Patient was seen and evaluated in follow up. Patient is on 2 LPM NC. Patient is complaining of BLE pain. AST 72, ALT 92. Blood cultures are pending. vital signs Vital Sign Date Time Temp Pulse Resp B/P (MAP) Pulse Ox O2 Delivery O2 Flow Rate FiO2 10/13/24 21:13 63 107/75 10/13/24 21:00 97.5 17 93 97.5 10/13/24 08:00 Nasal Cannula* 2 28 Total Intake and Output 10/12/24 10/12/24 10/13/24 15:00 23:00 07:00 Intake Total 1750 ml 300 ml 320 ml Balance 1750 ml 300 ml 320 ml medications Current Medications Medications Dose Ordered Sig/Zabrina Route Start Time Stop Time Status Last Admin Dose Admin Acetaminophen/ Hydrocodone Bitart 1 tab Q4HP PRN PO 10/12/24 15:45 Ondansetron HCl 4 mg Q4HP PRN IV 10/12/24 15:45 Docusate Sodium 100 mg BIDPRN PRN PO 10/12/24 15:45 Acetaminophen 650 mg Q6HP PRN PO 10/12/24 15:45 Amiodarone HCl 200 mg BID PO 10/12/24 22:00 10/13/24 20:57 200 MG Aspirin 81 mg DAILY PO 10/13/24 10:00 10/13/24 08:52 81 MG Carvedilol 3.125 mg BID PO 10/12/24 22:00 10/13/24 21:13 3.125 MG Empaglifozin 10 mg DAILY PO 10/13/24 10:00 10/13/24 08:52 10 MG Sacubitril/ Valsartan 1 tab BID PO 10/12/24 22:00 10/13/24 20:57 1 TAB Patient Own Medication 1 tab DAILY PO 10/13/24 10:00 UNV Patient Own Medication 1 tab DAILY PO 10/13/24 10:00 Clindamycin Phosphate 50 ml @ 50 mls/hr Q8HR IV 10/12/24 22:00 10/13/24 20:58 50 MLS/HR Piperacillin Sod/ Tazobactam Sod 100 ml @ 25 mls/hr Q8HR IV 10/12/24 22:00 10/13/24 22:31 25 MLS/HR Diagnostic Test (Pha) 1 strip ACHS 10/12/24 17:00 10/13/24 21:05 1 STRIP Insulin Human Regular HS SC 10/12/24 22:00 10/13/24 21:03 2 UNITS Insulin Human Regular AC SC 10/12/24 17:00 Dextrose 50 ml UD PRN IV 10/12/24 16:15 Rivaroxaban 20 mg QPM PO 10/12/24 18:00 10/13/24 17:47 20 MG Atorvastatin Calcium 40 mg HS PO 10/12/24 22:00 10/13/24 20:57 40 MG objective GENERAL: Alert and oriented x 3. No acute distress. EYES: PERRL, EOMI. Anicteric. HENT: Moist mucous membranes. LUNGS: Clear to auscultation bilaterally. CARDIOVASCULAR: Regular rate and rhythm. ABDOMEN: Soft, non-tender and non-distended. EXTREMITIES: Bilateral lower extremity swelling, pain, and open lesion to right beltran. NEUROLOGIC: No focal neurological deficits. SKIN: Warm, dry. laboratory and microbiology Laboratory Tests 10/13/24 06:46 Test 10/13/24 06:46 Range/Units Serum Glucose 98 74-106 mg/dL Problem List Venous stasis dermatitis of both lower extremities. Cellulitis. Hypertension. Atrial fibrillation. Hyperlipemia. Dementia. Diabetes. Acute on chronic congestive heart failure. History of coronary artery disease. Assessment/Plan Continued all current supportive medical care. [place] for pain management. Amiodarone. Aspirin, Lipitor. Coreg. IV antibiotics as ordered. Xarelto. Entresto. Additional plan as per the hospital course. Plan discussed with: Patient YAMILET DODD MD Oct 13, 2024 23:37
[2024-10-14] VITALS (8 sets, daily range): BP systolic 101–136; BP diastolic 54–86; PULSE 54–61; RESP 16–18; TEMP 97–98.1; O2SAT 92–100
--- NOTE | 2024-10-14 10:48 | DVHPN2 ---
Reviewed: Care Plan, H&P, Labs, Medications, Previous Orders, Radiology Changes from previous H/P or p: No Changes Eyes: No Pain, No Vision change, No Conjunctivae inflammation, No Eyelid inflammation, No Other, No Redness ENT: No Ear pain, No Ear discharge, No Nose pain, No Nose discharge, No Nose congestion, No Mouth pain, No Mouth swelling, No Throat pain, No Throat swelling, No Other Cardiovascular: No Chest Pain, No Palpitations, No Orthopnea, No Paroxysmal Noc. Dyspnea, No Edema, No Lt Headedness, No Other Respiratory: No Cough, No Dry, No Shortness of breath, No SOB with excertion, No Wheezing, No Hemoptysis, No Pleuritic Pain, No Sputum, No Other Gastrointestinal: No Nausea, No Vomiting, No Abdominal Pain, No Diarrhea, No Constipation, No Melena, No Hematochezia, No Other Genitourinary: No Dysuria, No Frequency, No Incontinence, No Hematuria, No Retention, No Other Musculoskeletal: No other, No neck pain, No shoulder pain, No arm pain, No back pain, No hand pain; leg pain (edema and redness); No foot pain Skin: No Rash; Lesions (bilateral lower extremities); No Jaundice, No Bruising, No Other Objective Vitals Vital Signs Date Time Temp Pulse Resp B/P (MAP) Pulse Ox O2 Delivery O2 Flow Rate FiO2 10/14/24 10:17 61 136/86 10/14/24 08:49 97.5 18 96 97.5 10/14/24 08:00 Nasal Cannula* 2 28 Intake/Output Intake and Output 10/14/24 06:59 Intake Total 1840 ml Balance 1840 ml Intake Oral 1440 ml IV Total 400 ml # Voids 9 Medications Current Medications Medications Dose Ordered Sig/Zabrina Route Start Time Stop Time Status Last Admin Dose Admin Acetaminophen/ Hydrocodone Bitart 1 tab Q4HP PRN PO 10/12/24 15:45 Ondansetron HCl 4 mg Q4HP PRN IV 10/12/24 15:45 Docusate Sodium 100 mg BIDPRN PRN PO 10/12/24 15:45 Acetaminophen 650 mg Q6HP PRN PO 10/12/24 15:45 Amiodarone HCl 200 mg BID PO 10/12/24 22:00 10/14/24 10:17 200 MG Aspirin 81 mg DAILY PO 10/13/24 10:00 10/14/24 10:16 81 MG Carvedilol 3.125 mg BID PO 10/12/24 22:00 10/14/24 10:17 3.125 MG Empaglifozin 10 mg DAILY PO 10/13/24 10:00 10/14/24 10:16 10 MG Sacubitril/ Valsartan 1 tab BID PO 10/12/24 22:00 10/14/24 10:16 1 TAB Patient Own Medication 1 tab DAILY PO 10/13/24 10:00 UNV Patient Own Medication 1 tab DAILY PO 10/13/24 10:00 Clindamycin Phosphate 50 ml @ 50 mls/hr Q8HR IV 10/12/24 22:00 10/14/24 05:03 50 MLS/HR Piperacillin Sod/ Tazobactam Sod 100 ml @ 25 mls/hr Q8HR IV 10/12/24 22:00 10/14/24 06:13 25 MLS/HR Diagnostic Test (Pha) 1 strip ACHS 10/12/24 17:00 10/14/24 06:13 1 STRIP Insulin Human Regular HS SC 10/12/24 22:00 10/13/24 21:03 2 UNITS Insulin Human Regular AC SC 10/12/24 17:00 Dextrose 50 ml UD PRN IV 10/12/24 16:15 Rivaroxaban 20 mg QPM PO 10/12/24 18:00 10/13/24 17:47 20 MG Atorvastatin Calcium 40 mg HS PO 10/12/24 22:00 10/13/24 20:57 40 MG Laboratory Results Laboratory Tests 10/13/24 06:46 Urinalysis Test 10/12/24 12:34 Urine Color Yellow (Yellow) Urine Clarity Clear (Clear) Urine pH 5.0 (5.0-9.0) Urine Specific [place] 1.032 (1.001-1.035) Urine Protein Negative (Negative) Urine Ketones Negative (Negative) Urine Blood Negative /uL (Negative) Urine Nitrite Negative (Negative) Urine Bilirubin Negative (Negative) Urine Urobilinogen Normal mg/dL (Negative) Urine Leukocyte Esterase Negative /uL (Negative) Urine RBC 1 /hpf (0 - 3) Urine Microscopic WBC 1 /HPF (0-3) Urine Squamous Epithelial Cells None seen /hpf (<5) Urine Bacteria None seen /hpf (None Seen) Urine Glucose 4+ mg/dL (Normal) H Microbiology Microbiology Date/Time Source Procedure Growth Status 10/12/24 10:46 Blood Blood Culture - Preliminary NO GROWTH AFTER 24 HOURS OF INCUBATION. Resulted Labs and/or images reviewed: Labs reviewed by me, Image(s) reviewed by me Assessment/Plan Assessment/Plan Venous stasis dermatitis of both lower extremities, Cellulitis bilateral lower extremities: Zosyn clindamycin, blood cultures negative Hypertension, History of coronary artery disease Dementia Acute on chronic congestive heart failure: Coreg Entresto Atrial fibrillation, : Consult by Dr. Montejo appreciated, continue amiodarone Xarelto Hyperlipemia, Dementia, Diabetes, insulin sliding scale Moderate malnutrition Time spent 50 minutes Advanced care planning time 20 minutes Midline ordered Plan discussed with: Patient Date of Service: Oct 14, 2024 Billing Provider: RAJAT KOWALSKI MD Common Visit Codes: [id number] INP/OBS CARE(HIGH) RAJAT KOWALSKI MD Oct 14, 2024 10:48
[2024-10-14 13:17] LABS: INR 1.46 (0.9-1.15); Prothrombin Time 14.9 sec (9.3-11.8)
--- NOTE | 2024-10-14 21:25 | DVHPN2 ---
Progress Note - Dictate Date Seen: Oct 14, 2024 Medical Necessity Reason Pt with a Central, PICC or Fol: No Subjective Patient was seen and evaluated in follow up. Patient is on 2 LPM NC. Patient denies any pain or discomfort. Prelim wound culture is growing coagulase negative staphylococcus. vital signs Vital Sign Date Time Temp Pulse Resp B/P (MAP) Pulse Ox O2 Delivery O2 Flow Rate FiO2 10/14/24 12:40 98.1 58 16 110/71 (84) 93 98.1 10/14/24 08:00 Nasal Cannula* 2 28 Total Intake and Output 10/13/24 10/13/24 10/14/24 15:00 23:00 07:00 Intake Total 100 ml 1050 ml 690 ml Balance 100 ml 1050 ml 690 ml medications Current Medications Medications Dose Ordered Sig/Zabrina Route Start Time Stop Time Status Last Admin Dose Admin Acetaminophen/ Hydrocodone Bitart 1 tab Q4HP PRN PO 10/12/24 15:45 Ondansetron HCl 4 mg Q4HP PRN IV 10/12/24 15:45 Docusate Sodium 100 mg BIDPRN PRN PO 10/12/24 15:45 Acetaminophen 650 mg Q6HP PRN PO 10/12/24 15:45 Amiodarone HCl 200 mg BID PO 10/12/24 22:00 10/14/24 10:17 200 MG Aspirin 81 mg DAILY PO 10/13/24 10:00 10/14/24 10:16 81 MG Carvedilol 3.125 mg BID PO 10/12/24 22:00 10/14/24 10:17 3.125 MG Empaglifozin 10 mg DAILY PO 10/13/24 10:00 10/14/24 10:16 10 MG Sacubitril/ Valsartan 1 tab BID PO 10/12/24 22:00 10/14/24 10:16 1 TAB Patient Own Medication 1 tab DAILY PO 10/13/24 10:00 UNV Patient Own Medication 1 tab DAILY PO 10/13/24 10:00 Clindamycin Phosphate 50 ml @ 50 mls/hr Q8HR IV 10/12/24 22:00 10/14/24 12:49 50 MLS/HR Piperacillin Sod/ Tazobactam Sod 100 ml @ 25 mls/hr Q8HR IV 10/12/24 22:00 10/14/24 06:13 25 MLS/HR Diagnostic Test (Pha) 1 strip ACHS 10/12/24 17:00 10/14/24 11:27 1 STRIP Insulin Human Regular HS SC 10/12/24 22:00 10/13/24 21:03 2 UNITS Insulin Human Regular AC SC 10/12/24 17:00 Dextrose 50 ml UD PRN IV 10/12/24 16:15 Rivaroxaban 20 mg QPM PO 10/12/24 18:00 10/13/24 17:47 20 MG Atorvastatin Calcium 40 mg HS PO 10/12/24 22:00 10/13/24 20:57 40 MG objective GENERAL: Alert and oriented x 3. No acute distress. EYES: PERRL, EOMI. Anicteric. HENT: Moist mucous membranes. LUNGS: Clear to auscultation bilaterally. CARDIOVASCULAR: Regular rate and rhythm. ABDOMEN: Soft, non-tender and non-distended. EXTREMITIES: Bilateral lower extremity swelling, pain, and open lesion to right beltran. NEUROLOGIC: No focal neurological deficits. SKIN: Warm, dry. laboratory and microbiology Laboratory Tests 10/13/24 06:46 Test 10/13/24 06:46 Range/Units Serum Glucose 98 74-106 mg/dL Problem List Venous stasis dermatitis of both lower extremities. Cellulitis. Hypertension. Atrial fibrillation. Hyperlipemia. Dementia. Diabetes. Acute on chronic congestive heart failure. History of coronary artery disease. Assessment/Plan Continued all current supportive medical care. [place] for pain management. Amiodarone. Aspirin, Lipitor. Coreg. IV antibiotics as ordered. Xarelto. Entresto. Additional plan as per the hospital course. Plan discussed with: Patient YAMILET DODD MD Oct 14, 2024 13:31
[2024-10-15] VITALS (8 sets, daily range): BP systolic 93–110; BP diastolic 53–69; PULSE 57–61; RESP 18; TEMP 36.7; O2SAT 92–100
--- NOTE | 2024-10-15 12:45 | DVHPN2 ---
Reviewed: Care Plan, H&P, Labs, Medications, Previous Orders, Radiology Changes from previous H/P or p: No Changes Eyes: No Pain, No Vision change, No Conjunctivae inflammation, No Eyelid inflammation, No Other, No Redness ENT: No Ear pain, No Ear discharge, No Nose pain, No Nose discharge, No Nose congestion, No Mouth pain, No Mouth swelling, No Throat pain, No Throat swelling, No Other Cardiovascular: No Chest Pain, No Palpitations, No Orthopnea, No Paroxysmal Noc. Dyspnea, No Edema, No Lt Headedness, No Other Respiratory: No Cough, No Dry, No Shortness of breath, No SOB with excertion, No Wheezing, No Hemoptysis, No Pleuritic Pain, No Sputum, No Other Gastrointestinal: No Nausea, No Vomiting, No Abdominal Pain, No Diarrhea, No Constipation, No Melena, No Hematochezia, No Other Genitourinary: No Dysuria, No Frequency, No Incontinence, No Hematuria, No Retention, No Other Musculoskeletal: No other, No neck pain, No shoulder pain, No arm pain, No back pain, No hand pain; leg pain (edema and redness); No foot pain Skin: No Rash; Lesions (bilateral lower extremities); No Jaundice, No Bruising, No Other Objective Vitals Vital Signs Date Time Temp Pulse Resp B/P (MAP) Pulse Ox O2 Delivery O2 Flow Rate FiO2 10/15/24 10:48 61 94/53 10/15/24 09:00 97.5 18 95 97.5 10/15/24 08:28 Nasal Cannula* 2 28 Intake/Output Intake and Output 10/15/24 07:00 Intake Total 1550 ml Balance 1550 ml Intake Oral 1200 ml IV Total 350 ml # Voids 9 Medications Current Medications Medications Dose Ordered Sig/Zabrina Route Start Time Stop Time Status Last Admin Dose Admin Acetaminophen/ Hydrocodone Bitart 1 tab Q4HP PRN PO 10/12/24 15:45 Ondansetron HCl 4 mg Q4HP PRN IV 10/12/24 15:45 Docusate Sodium 100 mg BIDPRN PRN PO 10/12/24 15:45 Acetaminophen 650 mg Q6HP PRN PO 10/12/24 15:45 Amiodarone HCl 200 mg BID PO 10/12/24 22:00 10/15/24 10:45 200 MG Aspirin 81 mg DAILY PO 10/13/24 10:00 10/15/24 10:45 81 MG Carvedilol 3.125 mg BID PO 10/12/24 22:00 10/15/24 10:48 3.125 MG Empaglifozin 10 mg DAILY PO 10/13/24 10:00 10/15/24 10:45 10 MG Sacubitril/ Valsartan 1 tab BID PO 10/12/24 22:00 10/15/24 10:46 1 TAB Patient Own Medication 1 tab DAILY PO 10/13/24 10:00 UNV Patient Own Medication 1 tab DAILY PO 10/13/24 10:00 Clindamycin Phosphate 50 ml @ 50 mls/hr Q8HR IV 10/12/24 22:00 10/15/24 05:17 50 MLS/HR Piperacillin Sod/ Tazobactam Sod 100 ml @ 25 mls/hr Q8HR IV 10/12/24 22:00 10/15/24 07:16 25 MLS/HR Diagnostic Test (Pha) 1 strip ACHS 10/12/24 17:00 10/15/24 11:36 1 STRIP Insulin Human Regular HS SC 10/12/24 22:00 10/14/24 22:18 2 UNITS Insulin Human Regular AC SC 10/12/24 17:00 Dextrose 50 ml UD PRN IV 10/12/24 16:15 Rivaroxaban 20 mg QPM PO 10/12/24 18:00 10/14/24 18:46 20 MG Atorvastatin Calcium 40 mg HS PO 10/12/24 22:00 10/14/24 21:56 40 MG Laboratory Results Laboratory Tests 10/13/24 06:46 Urinalysis Test 10/12/24 12:34 Urine Color Yellow (Yellow) Urine Clarity Clear (Clear) Urine pH 5.0 (5.0-9.0) Urine Specific [place] 1.032 (1.001-1.035) Urine Protein Negative (Negative) Urine Ketones Negative (Negative) Urine Blood Negative /uL (Negative) Urine Nitrite Negative (Negative) Urine Bilirubin Negative (Negative) Urine Urobilinogen Normal mg/dL (Negative) Urine Leukocyte Esterase Negative /uL (Negative) Urine RBC 1 /hpf (0 - 3) Urine Microscopic WBC 1 /HPF (0-3) Urine Squamous Epithelial Cells None seen /hpf (<5) Urine Bacteria None seen /hpf (None Seen) Urine Glucose 4+ mg/dL (Normal) H Microbiology Microbiology Date/Time Source Procedure Growth Status 10/13/24 09:45 Leg Gram Stain - Final Resulted 10/13/24 09:45 Leg Wound Culture - Preliminary Resulted 10/12/24 10:46 Blood Blood Culture - Preliminary NO GROWTH AFTER 72 HOURS OF INCUBATION. Resulted Labs and/or images reviewed: Labs reviewed by me, Image(s) reviewed by me Assessment/Plan Assessment/Plan Venous stasis dermatitis of both lower extremities, Cellulitis bilateral lower extremities: Zosyn clindamycin, blood cultures negative; to receive antibiotics for one month in the long-term facility Hypertension, History of coronary artery disease Dementia Acute on chronic congestive heart failure: Coreg Entresto Atrial fibrillation, : Consult by Dr. Montejo appreciated, continue amiodarone Xarelto Hyperlipemia, Dementia, Diabetes, insulin sliding scale Discussed with the patient about discharge to long-term facility for IV antibiotics for one month and he agrees ALFR[facility] Musa present Plan discussed with: Patient My Orders Orders - RAJAT KOWALSKI MD Procedure Category Date Status Time Cleanse Wound With REZA 10/14/24 In Process Wound Clean 11:05 Apply: REZA 10/14/24 In Process 10:15 * Dietary Consult CONS 10/14/24 Transmitted 14:42 Covid19 Antigen [facility] 10/15/24 Logged * Provider Relations Representative CONS 10/15/24 Transmitted Consult Date of Service: Oct 15, 2024 Billing Provider: RAJAT KOWALSKI MD Common Visit Codes: [id number] INP/OBS CARE(HIGH) RAJAT KOWALSKI MD Oct 15, 2024 12:45
--- NOTE | 2024-10-15 12:49 | DVHDS2 ---
Discharge Summary Date of Admission Oct 12, 2024 at 15:45 Date of Discharge: Oct 15, 2024 Admitting Diagnosis Sepsis secondary to cellulitis bilateral lower legs Wounds: Cellulitis bilateral lower legs Labs/Diagnostic Data: Laboratory Results Test 10/15/24 11:35 10/14/24 12:02 10/13/24 06:46 10/12/24 16:13 POC Glucose 105 mg/dl (70-106) Prothrombin Time 14.9 sec (9.3-11.8) Prothrombin Time INR 1.46 (0.9-1.15) White Blood Count 4.8 10^3/uL (4.4-10.8) Red Blood Count 4.29 10^6/uL (4.5-5.90) Hemoglobin 12.3 g/dL (13.5-17.5) Hematocrit 36.7 % (41.0-53.0) Mean Corpuscular Volume 85.4 fL (80.0-100.0) Mean Corpuscular Hemoglobin 28.6 pg (28.0-32.0) Mean Corpuscular Hemoglobin Concent 33.5 g/dL (32.0-36.0) Red Cell Distribution Width 16.8 % (11.8-14.3) Platelet Count 220 10^3/uL (140-450) Mean Platelet Volume 9.1 fL (6.9-10.8) Neutrophils (%) (Auto) 59.4 % (37.0-80.0) Lymphocytes (%) (Auto) 26.2 % (10.0-50.0) Monocytes (%) (Auto) 10.9 % (0.0-12.0) Eosinophils (%) (Auto) 2.9 % (0.0-7.0) Basophils (%) (Auto) 0.6 % (0.0-2.0) Neutrophils # (Auto) 2.8 10 ^3/uL (1.6-8.6) Lymphocytes # (Auto) 1.3 10 ^3/uL (0.4-5.4) Monocytes # (Auto) 0.5 10 ^3/uL (0-1.3) Eosinophils # (Auto) 0.1 10 ^3/uL (0-0.8) Basophils # (Auto) 0 10 ^3/uL (0-0.2) Nucleated Red Blood Cells 0.0 % Sodium Level 142 mmol/L (136-145) Potassium Level 4.2 mmol/L (3.5-5.1) Chloride Level 109 mmol/L (98-107) Carbon Dioxide Level 24 mmol/L (20-31) Anion Gap 9 (5-15) Blood Urea Nitrogen 10 mg/dL (9-23) Creatinine 0.82 mg/dL (0.700-1.30) Glomerular Filtration Rate Calc 97 mL/min (>90) BUN/Creatinine Ratio 12.2 (10.0-20.0) Serum Glucose 98 mg/dL (74-106) Calcium Level 8.9 mg/dL (8.7-10.4) Total Bilirubin 1.4 mg/dL (0.2-1.0) Aspartate Amino Transferase (AST) 72 U/L (<34) Alanine Aminotransferase (ALT) 92 U/L (7-40) Alkaline Phosphatase 114 U/L (46-116) Total Protein 6.6 g/dL (5.7-8.2) Albumin 3.6 g/dL (3.2-4.8) Troponin I High Sensitivity 4 ng/L (</=54) Test 10/12/24 12:34 10/12/24 10:46 Urine Color Yellow (Yellow) Urine Clarity Clear (Clear) Urine pH 5.0 (5.0-9.0) Urine Specific [place] 1.032 (1.001-1.035) Urine Protein Negative (Negative) Urine Ketones Negative (Negative) Urine Blood Negative /uL (Negative) Urine Nitrite Negative (Negative) Urine Bilirubin Negative (Negative) Urine Urobilinogen Normal mg/dL (Negative) Urine Leukocyte Esterase Negative /uL (Negative) Urine RBC 1 /hpf (0 - 3) Urine Microscopic WBC 1 /HPF (0-3) Urine Squamous Epithelial Cells None seen /hpf (<5) Urine Bacteria None seen /hpf (None Seen) Urine Glucose 4+ mg/dL (Normal) Lactic Acid Level 1.3 mmol/L (0.4-2.0) Other Laboratory Tests 10/13/24 06:46 Brief Hx & Hospital Course: 64-year-old male came in for generalized weakness secondary to chronic bilateral lower leg cellulitis and venous stasis dermatitis. History of hypertension coronary artery disease dementia congestive heart failure atrial fibrillation hyperlipidemia and diabetes. Patient was started on Zosyn and clindamycin IV blood cultures negative seen by Cardiology Dr. Montejo for cardiac issues placed on Coreg Entresto amiodarone Xarelto patient will be discharged to residential facility for IV antibiotics for one month and the plan is agreeable to the patient. Consults/Reason for consult Cardiology Dr. Montejo Operations or Procedures None Condition at Discharge: Fair Final Diagnosis/Problems List Venous stasis dermatitis of both lower extremities, Cellulitis bilateral lower extremities: Zosyn clindamycin, blood cultures negative; to receive antibiotics for one month in the residential facility Hypertension, History of coronary artery disease Dementia Acute on chronic congestive heart failure: Coreg Entresto Atrial fibrillation, : Consult by Dr. Montejo appreciated, continue amiodarone Xarelto Hyperlipemia, Dementia, Diabetes, insulin sliding scale Discharge Disposition: [facility] Discharge Instruct/Medications Diet: Consistent carbohydrate, Cardiac 2g Na,low cholest Activity: Light activity Medications: Zosyn 3.375 g IV q.8 hours for one month Clindamycin 300 mg IV daily for one month see list for other meds Discharge Statement: "Patient was advised to return to the ER or call 911 if any headaches, dizziness, shortness of breath, chest pain, abdominal pain, bleeding, fevers, or worsening of medical condition. Patient was counseled about treatment plan, medications, possible side effects, patientverbalized understanding. All questions were answered to the best of my ability. This discharge took greater then 30 minutes in planning, reviewing documentation, counseling the patient, and discussing with other team members." ASSESSMENT ASSESSMENT Hospital Course Improved Assessment Venous stasis dermatitis of both lower extremities, Cellulitis bilateral lower extremities: Zosyn clindamycin, blood cultures negative; to receive antibiotics for one month in the residential facility Hypertension, History of coronary artery disease Dementia Acute on chronic congestive heart failure: Coreg Entresto Atrial fibrillation, : Consult by Dr. Montejo appreciated, continue amiodarone Xarelto Hyperlipemia, Dementia, Diabetes, insulin sliding scale Date of Service: Oct 15, 2024 Billing Provider: RAJAT KOWALSKI MD Common Visit Codes: [id number]-EZF/OBS DISCH DAY >30min RAJAT KOWALSKI MD Oct 15, 2024 12:49
[2024-10-15] MEDS ORDERED: LIDOCAINE 1% (LOCAL ANESTH.) PF 5ml SDV ID ONE (16:45)
[2024-10-15 17:22] LABS: COVID19 ANTIGEN SOFIA FIA NEGATIVE (NEGATIVE)
[2024-10-15] MEDS ORDERED: SODIUM CHLOR 0.9% PF (SALINE LOCK) 10ML VIAL/SYR IV SCH (22:00)
--- NOTE | 2024-10-15 23:36 | DVHPN2 ---
Progress Note - Dictate Date Seen: Oct 15, 2024 Medical Necessity Reason Pt with a Central, PICC or Fol: No Subjective Patient was seen and evaluated in follow up. Patient has no new complaints at this time. Patient denies any cardiac symptoms. Patient is cardiac stable for discharge. Patient was seen and evaluated in follow up. Patient resting in bed. Patient stable on 2LM NC. Pending PICC line placement. BS are WNL. vital signs Vital Sign Date Time Temp Pulse Resp B/P (MAP) Pulse Ox O2 Delivery O2 Flow Rate FiO2 10/15/24 10:48 61 94/53 10/15/24 09:00 97.5 18 95 97.5 10/15/24 08:28 Nasal Cannula* 2 28 Total Intake and Output 10/14/24 10/14/24 10/15/24 15:00 23:00 07:00 Intake Total 50 ml 950 ml 550 ml Balance 50 ml 950 ml 550 ml medications Current Medications Medications Dose Ordered Sig/Zabrina Route Start Time Stop Time Status Last Admin Dose Admin Acetaminophen/ Hydrocodone Bitart 1 tab Q4HP PRN PO 10/12/24 15:45 Ondansetron HCl 4 mg Q4HP PRN IV 10/12/24 15:45 Docusate Sodium 100 mg BIDPRN PRN PO 10/12/24 15:45 Acetaminophen 650 mg Q6HP PRN PO 10/12/24 15:45 Amiodarone HCl 200 mg BID PO 10/12/24 22:00 10/15/24 10:45 200 MG Aspirin 81 mg DAILY PO 10/13/24 10:00 10/15/24 10:45 81 MG Carvedilol 3.125 mg BID PO 10/12/24 22:00 10/15/24 10:48 3.125 MG Empaglifozin 10 mg DAILY PO 10/13/24 10:00 10/15/24 10:45 10 MG Sacubitril/ Valsartan 1 tab BID PO 10/12/24 22:00 10/15/24 10:46 1 TAB Patient Own Medication 1 tab DAILY PO 10/13/24 10:00 UNV Patient Own Medication 1 tab DAILY PO 10/13/24 10:00 Clindamycin Phosphate 50 ml @ 50 mls/hr Q8HR IV 10/12/24 22:00 10/15/24 05:17 50 MLS/HR Piperacillin Sod/ Tazobactam Sod 100 ml @ 25 mls/hr Q8HR IV 10/12/24 22:00 10/15/24 07:16 25 MLS/HR Diagnostic Test (Pha) 1 strip ACHS 10/12/24 17:00 10/15/24 11:36 1 STRIP Insulin Human Regular HS SC 10/12/24 22:00 10/14/24 22:18 2 UNITS Insulin Human Regular AC SC 10/12/24 17:00 Dextrose 50 ml UD PRN IV 10/12/24 16:15 Rivaroxaban 20 mg QPM PO 10/12/24 18:00 10/14/24 18:46 20 MG Atorvastatin Calcium 40 mg HS PO 10/12/24 22:00 10/14/24 21:56 40 MG objective GENERAL: Alert and oriented x 3. No acute distress. EYES: PERRL, EOMI. Anicteric. HENT: Moist mucous membranes. LUNGS: Clear to auscultation bilaterally. CARDIOVASCULAR: Regular rate and rhythm. ABDOMEN: Soft, non-tender and non-distended. EXTREMITIES: Bilateral lower extremity swelling, pain, and open lesion to right beltran. NEUROLOGIC: No focal neurological deficits. SKIN: Warm, dry. laboratory and microbiology Laboratory Tests 10/13/24 06:46 Test 10/13/24 06:46 Range/Units Serum Glucose 98 74-106 mg/dL Problem List Venous stasis dermatitis of both lower extremities. Cellulitis. Hypertension. Atrial fibrillation. Hyperlipemia. Dementia. Diabetes. Acute on chronic congestive heart failure. History of coronary artery disease. Assessment/Plan Continued all current supportive medical care. [place] for pain management. Amiodarone. Aspirin, Lipitor. Coreg. IV antibiotics as ordered. Xarelto. Entresto. Additional plan as per the hospital course. Dietary Evaluation Review Comments: Nutrition Recommendation: 1. [place] 1 pk BID 2.CCHO 60gm + 2gm Na diet 3. Refer to CDE on DC 4. Continue current plan of care Expected Outcomes/Goals: wound to improve fu 3-5 days Plan discussed with: Patient YAMILET DODD MD Oct 15, 2024 11:54
== END 2024-10-15 20:08 | DRG 638 ==
LOC: EDBD 10:26 → ER 10:26 → OVERFLOW 15:45 → WEST WING 22:15
PROVIDERS: ADMIT Family Medicine; ATTEND Family Medicine
PROC: 02HV33Z Insertion of Infusion Device into Superior Vena Cava, Percutaneous Approach (ICD-10-PCS; principal; 2024-10-15)
PROC: B548ZZA Ultrasonography of Superior Vena Cava, Guidance (ICD-10-PCS; 2024-10-15)
DX: E11.628 Type 2 diabetes mellitus with other skin complications (principal); I50.32 Chronic diastolic (congestive) heart failure; L03.116 Cellulitis of left lower limb; L03.115 Cellulitis of right lower limb; I87.2 Venous insufficiency (chronic) (peripheral); F03.90 Unspecified dementia, unspecified severity, without behavioral disturbance, psychotic disturbance, mood disturbance, and anxiety; E78.5 Hyperlipidemia, unspecified; I48.91 Unspecified atrial fibrillation; I25.10 Atherosclerotic heart disease of native coronary artery without angina pectoris; I11.0 Hypertensive heart disease with heart failure; I45.10 Unspecified right bundle-branch block; Z79.2 Long term (current) use of antibiotics; I25.2 Old myocardial infarction; Z79.82 Long term (current) use of aspirin; Z79.84 Long term (current) use of oral hypoglycemic drugs; Z86.73 Personal history of transient ischemic attack (TIA), and cerebral infarction without residual deficits; Z68.36 Body mass index [BMI] 36.0-36.9, adult; Z79.899 Other long term (current) drug therapy
CPT/HCPCS: 36415; 36569; 71045; 76937; 80048; 80053; 81001; 82962; 83605; 84484; 85025; 85610; 87040; 87205; 87426; 93005; 96365; 99291; G0378; J1815; J2543; J3490